=== PATIENT | female | born 1970 | race Caucasian/White ===

== ENCOUNTER 2022-12-28 08:55 | Emergency (ER) | payer OTHER ==
[~2022-12-28] VITALS: Ht 170.2 cm; Wt 117.9 kg
[2022-12-28 09:13] VITALS: BP 175/103
[2022-12-28 09:15] VITALS: BP 168/100
[2022-12-28 09:30] VITALS: BP 169/98
[2022-12-28 09:46] VITALS: BP 164/98
[2022-12-28 10:02] LABS: BASO% 0.9 % (0-3); EOS% 2.4 % (0-8); HEMATOCRIT 40.8 % (37.0-47.0); HEMOGLOBIN 13.2 g/dl (12.0-16.0); IMMATURE GRANULOCYTES 1.7 % (0.0-5.0); LYMPH% 30.8 % (15-41); MEAN CORPUSCULAR HGB 28.1 pG CALC (26.0-32.0); MEAN CORPUSCULAR HGB CONC 32.4 g/dL CAL (32.0-36.0); MONO% 7.3 % (2-13); NEUT# 4.66 thou/uL (2.00-7.15); NEUT% 56.9 % (42-76); RED BLOOD COUNT 4.69 mill/uL (4.20-5.60); RED CELL DISTRI WIDTH 15.1 % (11.5-15.5)
[2022-12-28 10:22] LABS: ALBUMIN 4.2 g/dL (3.2-5.0); ALKALINE PHOSPHATASE 132 u/l (38-126); ANION GAP 13 (6-22 (CALC)); BUN 4 mg/dL (7-17); BUN/CREATININE RATIO 8 (12-20 (CALC)); CARBON DIOXIDE 29 mmol/l (22-30); CHLORIDE 94 mmol/l (95-108); CREATININE 0.6 mg/dL (0.5-1.0); GFR FOR AFR.AMER. > 60 ML/MIN (>=60 (CALC)); GFR OTHER RACES > 60 ML/MIN (>=60 (CALC)); POTASSIUM 3.6 mmol/l (3.5-5.1); SGOT/AST 36 u/l (14-36); SODIUM 132 mmol/l (137-146)
[2022-12-28] MEDS ORDERED: ZPAK PO (11:15)
[2022-12-28] MEDS ORDERED: PREDNISONE50 MG PO (11:15)
[2022-12-28] MEDS ORDERED: VENTOLIN HFA108 MCG PO (11:16)
[2022-12-28 11:39] VITALS: BP 164/98
== END 2022-12-28 11:35 | disposition home or self-care (01) ==
LOC: ED 08:55
PROVIDERS: Family Medicine
DX: M25.512 Pain in left shoulder (principal); M54.2 Cervicalgia; M25.552 Pain in left hip; J06.9 Acute upper respiratory infection, unspecified; I10 Essential (primary) hypertension; J45.909 Unspecified asthma, uncomplicated; F41.9 Anxiety disorder, unspecified; F32.A Depression, unspecified; I25.2 Old myocardial infarction; Z86.73 Personal history of transient ischemic attack (TIA), and cerebral infarction without residual deficits; Z20.822 Contact with and (suspected) exposure to COVID-19